=== PATIENT | female | born 1980 | race Caucasian/White ===

== ENCOUNTER 2018-11-17 22:33 | Inpatient (IN) | payer OTHER ==
[~2018-11-17] VITALS: Ht 172.7 cm; Wt 105.8 kg
[~2018-11-17 22:33] MED LIST: CHOL10002 PO; DOCO200C3 PO; IBUP-1222 PO; OXYC-302 PO
--- NOTE | 2018-11-17 22:39 | NUR ---
PT PLACED IN GOWN AND AWAITING ERP AND ORDERS.
[2018-11-17] MEDS ORDERED: MAALOX/HYOSCYAMINE/LIDOCAINE 45 ML BTL ONE (22:59)
[2018-11-17] MEDS ORDERED: MAALOX/HYOSCYAMINE/LIDOCAINE 45 ML BTL PO ONE (23:00)
--- NOTE | 2018-11-17 23:04 | NUR ---
EKG DONE IN TRIAGE
[2018-11-17 23:25] LABS: CULTURE INDICATED? YES; MICROSCOPIC INDICATED
[2018-11-17 23:37] LABS: BASOPHILS # (AUTO) 0.03 x10^3/uL (0-0.1); BASOPHILS % (AUTO) 0 % (0-1); EOSINOPHILS % (AUTO) 1 % (1-7); LYMPHOCYTES # (AUTO) 1.53 x10^3/uL (1-3.4); LYMPHOCYTES % (AUTO) 16 % (22-44); MD NO; MEAN CORPUSCULAR HGB CONC 34.7 g/dL (32.4-35.8); MEAN CORPUSCULAR VOLUME 89.3 fL (80-100); MEAN PLATELET VOLUME 7.8 fL (7.4-10.4); MONOCYTES # (AUTO) 0.41 x10^3/uL (0.2-0.8); MONOCYTES % (AUTO) 4 % (2-9); NEUTROPHILS # (AUTO) 7.85 x10^3/uL (1.8-6.8); NEUTROPHILS % (AUTO) 79 % (42-75); PLATELET COUNT 289 x10^3/uL (130-400); RED BLOOD COUNT 4.45 x10^6/uL (3.82-5.3); RED CELL DISTRIBUTION WIDTH 14.3 % (9.6-15.2)
[2018-11-17 23:55] LABS: ALANINE AMINOTRANSFERASE 48 U/L (12-78); ALBUMIN 3.6 g/dL (3.4-5.0); ANION GAP 8 mmol/L (5-15); CALCIUM 8.3 mg/dL (8.5-10.1); CHLORIDE 108 mmol/L (98-107)
[2018-11-17 23:58] LABS: TROPONIN I < 0.015 ng/mL (0.000-0.045)
[2018-11-18] LABS: ALKALINE PHOSPHATASE 161 U/L (45-117); BILIRUBIN,TOTAL 0.5 mg/dL (0.2-1.0); CREATININE 0.85 mg/dL (0.55-1.02)
[2018-11-18] MEDS ORDERED: ONDANSETRON ODT 4 MG ONE (00:40)
[2018-11-18] MEDS ORDERED: HYDROmorphone 2 MG/ML, 1ML ONE (00:41)
--- NOTE | 2018-11-18 00:52 | NUR ---
pt to be admitted in nad at this time
[2018-11-18] MEDS ORDERED: ONDANSETRON ODT 4 MG PO ONE (01:00)
[2018-11-18] MEDS ORDERED: HYDROmorphone 2 MG/ML, 1ML IV PRN (01:00)
[2018-11-18] MEDS ORDERED: ONDANSETRON 2MG/ML, 2ML IVPush ONE (01:00)
[2018-11-18] MEDS ORDERED: HYDROmorphone 2 MG/ML, 1ML IM PRN (01:00)
--- NOTE | 2018-11-18 01:14 | NUR ---
report to lisa pt to floor with tech
[2018-11-18 02:45] VITALS: BP 116/79
[2018-11-18] MEDS ORDERED: morphine SULFATE 10 MG/ML, 1ML IVPush PRN (05:00)
[2018-11-18] MEDS ORDERED: ONDANSETRON 2MG/ML, 2ML IVPush PRN (05:00)
[2018-11-18] MEDS: SODIUM CHLORIDE 0.9% 1,000 ML IV SCH ×2 (06:29→18:13)
[2018-11-18 07:28] VITALS: BP 110/73
[2018-11-18] MEDS ORDERED: SUCCINYLCHOLINE 20 MG/ML, 10ML ONE (10:40)
[2018-11-18] MEDS ORDERED: PROPOFOL 10 MG/ML, 20ML ONE (10:40)
[2018-11-18 13:26] LABS: HCG UR SG 1.025 (1.003-1.030)
[2018-11-18] MEDS ORDERED: KETOROLAC 30 MG/1 ML IV PRN (13:30)
[2018-11-18] MEDS ORDERED: MEPERIDINE/PF 25MG/0.5ML IVPush PRN (13:30)
[2018-11-18] MEDS ORDERED: ONDANSETRON 2MG/ML, 2ML IV PRN (13:30)
[2018-11-18] MEDS ORDERED: METOCLOPRAMIDE 5 MG/ML, 2ML IV PRN (13:30)
[2018-11-18] MEDS ORDERED: OXYcodone 5 MG/5 ML ORAL.SOL UDC PO PRN (13:30)
[2018-11-18] MEDS ORDERED: MIDAZOLAM 1 MG/ML, 2ML ONE (13:51)
[2018-11-18] MEDS ORDERED: FENTANYL PF 100 MCG/2ML ONE ×2 (13:51→14:30)
[2018-11-18] MEDS ORDERED: OMNIPAQUE 350 MG/ML, 50 ML BOTTLE ONE (14:10)
[2018-11-18] MEDS ORDERED: OXYcodone 5 MG/5 ML ORAL.SOL UDC ONE (14:28)
[2018-11-18] MEDS: FENTANYL PF 100 MCG/2ML IV PRN ×2 (14:33→14:40)
[2018-11-18 15:05] VITALS: BP 110/77
[2018-11-18] MEDS: KETOROLAC 30 MG/1 ML IV PRN ×2 (16:03→22:55)
[2018-11-18 20:45] VITALS: BP 103/57
[2018-11-19 03:14] VITALS: BP 102/67
[2018-11-19] MEDS: SODIUM CHLORIDE 0.9% 1,000 ML IV SCH (03:15)
[2018-11-19 04:49] LABS: BASOPHILS # (AUTO) 0.02 x10^3/uL (0-0.1); BASOPHILS % (AUTO) 0 % (0-1); EOSINOPHILS # (AUTO) 0.08 x10^3/uL (0-0.4); EOSINOPHILS % (AUTO) 2 % (1-7); LYMPHOCYTES # (AUTO) 1.45 x10^3/uL (1-3.4); LYMPHOCYTES % (AUTO) 27 % (22-44); MD NO; MEAN CORPUSCULAR HEMOGLOBIN 30.8 pg (27.0-34.8); MEAN CORPUSCULAR HGB CONC 34.2 g/dL (32.4-35.8); MEAN CORPUSCULAR VOLUME 90.1 fL (80-100); MEAN PLATELET VOLUME 7.7 fL (7.4-10.4); MONOCYTES # (AUTO) 0.26 x10^3/uL (0.2-0.8); MONOCYTES % (AUTO) 5 % (2-9); NEUTROPHILS # (AUTO) 3.64 x10^3/uL (1.8-6.8); NEUTROPHILS % (AUTO) 67 % (42-75); PLATELET COUNT 251 x10^3/uL (130-400); RED BLOOD COUNT 4.01 x10^6/uL (3.82-5.3); RED CELL DISTRIBUTION WIDTH 14.5 % (9.6-15.2)
[2018-11-19 05:00] LABS: ALANINE AMINOTRANSFERASE 596 U/L (12-78); ANION GAP 5 mmol/L (5-15); CALCIUM 8.1 mg/dL (8.5-10.1); CHLORIDE 111 mmol/L (98-107)
[2018-11-19 05:03] LABS: ALKALINE PHOSPHATASE 233 U/L (45-117); BILIRUBIN,TOTAL 1.1 mg/dL (0.2-1.0); CREATININE 0.64 mg/dL (0.55-1.02); TOTAL PROTEIN 6.3 g/dL (6.4-8.2)
[2018-11-19 07:05] VITALS: BP 116/78
[2018-11-19 13:10] VITALS: BP 109/75
[2018-11-19] MEDS: KETOROLAC 30 MG/1 ML IV PRN (14:25)
[2018-11-19 20:10] VITALS: BP 108/69
[2018-11-20 00:38] VITALS: BP 123/85
[2018-11-20] MEDS: KETOROLAC 30 MG/1 ML IV PRN ×2 (02:18→09:16)
[2018-11-20 05:27] LABS: ALBUMIN 3.3 g/dL (3.4-5.0); ANION GAP 6 mmol/L (5-15); CALCIUM 8.3 mg/dL (8.5-10.1); CHLORIDE 107 mmol/L (98-107)
[2018-11-20 05:31] LABS: ALANINE AMINOTRANSFERASE 454 U/L (12-78); ALKALINE PHOSPHATASE 248 U/L (45-117); BILIRUBIN,TOTAL 0.5 mg/dL (0.2-1.0); CREATININE 0.68 mg/dL (0.55-1.02); TOTAL PROTEIN 6.8 g/dL (6.4-8.2)
[2018-11-20 08:37] VITALS: BP 113/80
== END 2018-11-20 12:15 | disposition home or self-care (01) | DRG 446 ==
LOC: ED 22:48 → EDIP 11-18 00:47 → 3NW 11-18 01:40 → DCLOUNGE 11-20 11:57
PROVIDERS: ADMIT Hospitalist; ATTEND Hospitalist
PROC: 0F778ZZ Dilation of Common Hepatic Duct, Via Natural or Artificial Opening Endoscopic (ICD-10-PCS; 2018-11-18)
PROC: 0FC98ZZ Extirpation of Matter from Common Bile Duct, Via Natural or Artificial Opening Endoscopic (ICD-10-PCS; 2018-11-18)
PROC: 0FC78ZZ Extirpation of Matter from Common Hepatic Duct, Via Natural or Artificial Opening Endoscopic (ICD-10-PCS; 2018-11-18)
PROC: 0F798ZZ Dilation of Common Bile Duct, Via Natural or Artificial Opening Endoscopic (ICD-10-PCS; principal; 2018-11-18 14:00)
DX: K80.50 Calculus of bile duct without cholangitis or cholecystitis without obstruction (principal); E66.9 Obesity, unspecified; Z68.35 Body mass index [BMI] 35.0-35.9, adult; E78.5 Hyperlipidemia, unspecified; R74.0 Nonspecific elevation of levels of transaminase and lactic acid dehydrogenase [LDH]; K21.9 Gastro-esophageal reflux disease without esophagitis; Z83.3 Family history of diabetes mellitus; Z90.49 Acquired absence of other specified parts of digestive tract; Z98.891 History of uterine scar from previous surgery; Z88.6 Allergy status to analgesic agent; Z88.8 Allergy status to other drugs, medicaments and biological substances
CPT/HCPCS: 36415; 74328; 76700; 80053; 81001; 81025; 83690; 83735; 84100; 84484; 84703; 85025; 87086; 93005; 96374; 99285; G0378; J1170; J1885; J2250; J2405; J2704; J3010; Q9967; C1769; J0330; J7030